=== PATIENT | female | born 1960 | race Caucasian/White ===

== ENCOUNTER 2018-12-05 13:12 | Emergency (ER) | payer BC, OTHER ==
[~2018-12-05] VITALS: Ht 160 cm; Wt 65.8 kg
[2018-12-05] MEDS ORDERED: ALLEGRA ALLERG180 MG PO (13:22)
[2018-12-05] MEDS ORDERED: FLONASE 0.05%50 MCG NASAL (13:22)
[2018-12-05] MEDS ORDERED: PROAIR HFA8.5 GM (13:22)
[2018-12-05] MEDS ORDERED: SYMBICORT160 MCG/4. INH (13:22)
[2018-12-05] MEDS ORDERED: MIRALAX17 GM PO (14:48)
[2018-12-05] MEDS ORDERED: PERCOCET PO (14:48)
[2018-12-05] MEDS ORDERED: COLACE100 MG PO (14:48)
[2018-12-05 15:18] VITALS: BP 122/76
== END 2018-12-05 15:19 | disposition home or self-care (01) ==
LOC: ER 13:12
DX: S52.502A Unspecified fracture of the lower end of left radius, initial encounter for closed fracture (principal); S52.612A Displaced fracture of left ulna styloid process, initial encounter for closed fracture; Z88.0 Allergy status to penicillin; Z88.8 Allergy status to other drugs, medicaments and biological substances; W18.39XA Other fall on same level, initial encounter; Y93.89 Activity, other specified; Y92.89 Other specified places as the place of occurrence of the external cause; Y99.8 Other external cause status

== ENCOUNTER → 2018-12-21 | Outpatient (CLI) | payer BC, OTHER ==
[~2018-12-21] MED LIST: ALLEGRA ALLERG180 MG PO; COLACE100 MG PO; FLONASE 0.05%50 MCG NASAL; MIRALAX17 GM PO; PERCOCET PO; PROAIR HFA8.5 GM; SYMBICORT160 MCG/4. INH
[2018-12-21 11:41] LABS: HEMATOCRIT 41.1 % (37.0-47.0); HEMOGLOBIN 14.4 gm/dL (12.0-15.0); MCH 31.6 pg (26.0-34.0); MCHC 34.9 g/dL (28.0-37.0); MCV 90.5 fL (80.0-100.0); RBC 4.55 mil/uL (4.20-5.00); RDW 12.5 % (10.5-14.5); WBC 4.9 thou/uL (4.0-11.0)
[2018-12-21 11:54] LABS: CALCIUM 9.6 mg/dL (8.5-10.1); CREATININE 0.9 mg/dL (0.6-1.0); PHOSPHORUS 4.1 mg/dL (2.5-4.9)
[2018-12-21 11:56] LABS: ALBUMIN 4.2 g/dL (3.4-5.0); CALCIUM 9.6 mg/dL (8.5-10.1); CREATININE 0.9 mg/dL (0.6-1.0); POTASSIUM 4.1 mmol/L (3.5-5.1); TOTAL BILIRUBIN 0.4 mg/dL (<0.1-1.0); TOTAL PROTEIN 6.9 g/dL (6.4-8.2)
== END ==
LOC: NUC 10:39
PROVIDERS: Orthopaedic Surgery Hand Surgery
DX: S52.612A Displaced fracture of left ulna styloid process, initial encounter for closed fracture (principal); S52.572A Other intraarticular fracture of lower end of left radius, initial encounter for closed fracture; M81.0 Age-related osteoporosis without current pathological fracture; M85.89 Other specified disorders of bone density and structure, multiple sites; Z78.0 Asymptomatic menopausal state; X58.XXXA Exposure to other specified factors, initial encounter; Y93.89 Activity, other specified; Y92.89 Other specified places as the place of occurrence of the external cause; Y99.8 Other external cause status

== ENCOUNTER → 2020-09-14 | Outpatient (CLI) | payer BC, OTHER | LOC: NUC 09:47 | PROVIDERS: ATTEND Orthopaedic Surgery Foot and Ankle Surgery | DX: M81.0 Age-related osteoporosis without current pathological fracture (principal); M85.88 Other specified disorders of bone density and structure, other site ==